=== PATIENT | female | born 1985 | race Caucasian/White ===

== ENCOUNTER → 2019-11-23 15:46 | Outpatient (CLI) | payer BC, SELFPAY ==
--- NOTE | ~2019-11-23 | MR_ITS ---
EXAMINATION: MR cervical spine wo con EXAM DATE: 11/23/2019 16:34 INDICATION: Generalized neck pain. Headaches. TECHNIQUE: Multi-sequential, multiplanar MR images of the cervical spine were obtained without contra st. Axial T2, axial T2 MERGE sequence. Sagittal T1, T2, T2 fat saturation images also obtained. Th ere is no prior study for comparison. FINDINGS: The vertebral bodies are aligned in the AP dimension. Vertebral body and disc heights are well-maintained. There are no suspicious marrow signal abnormalities. The spinal cord signal intensit y and intrinsic morphology is normal. Cervicomedullary junction is normal in appearance. Paraspinal s oft tissue is unremarkable. Level by level evaluation: C2-C3: Disc does not extend beyond the endplate margin. Uncovertebral joint arthropathy: None. Facet joint arthropathy: Mild bilateral. Neural foraminal stenosis: No stenosis. Central canal stenosis: No stenosis. C3-C4: Disc does not extend beyond the endplate margin. Uncovertebral joint arthropathy: None. Facet joint arthropathy: Mild bilateral. Neural foraminal stenosis: No stenosis. Central canal stenosis: No stenosis. C4-C5: Disc does not extend beyond the endplate margin. Uncovertebral joint arthropathy: Mild left. Facet joint arthropathy: Mild bilateral. Neural foraminal stenosis: No stenosis. Central canal stenosis: No stenosis. C5-C6: Disc does not extend beyond the endplate margin. Uncovertebral joint arthropathy: Mild bilateral. Facet joint arthropathy: Mild bilateral. Neural foraminal stenosis: No stenosis. Central canal stenosis: No stenosis. C6-C7: Disc does not extend beyond the endplate margin. Uncovertebral joint arthropathy: Mild bilateral. Facet joint arthropathy: Mild bilateral. Neural foraminal stenosis: No stenosis. Central canal stenosis: No stenosis. C7-T1: Disc does not extend beyond the endplate margin. Uncovertebral joint arthropathy: Mild left. Facet joint arthropathy: Mild bilateral. Neural foraminal stenosis: No stenosis. Central canal stenosis: No stenosis. IMPRESSION: Mild cervical arthropathy. No stenosis. Reviewed, dictated and finalized at location A. CAL COLLECTIONS SPECIALIST
== END ==
PROVIDERS: PCP Internal Medicine; Visit Provider Nurse Practitioner Gerontology
DX: M54.12 Radiculopathy, cervical region (principal)
CPT/HCPCS: 72141

== ENCOUNTER 2021-11-08 18:44 | Emergency (ER) | payer BC, SELFPAY ==
--- NOTE | ~2021-11-08 | XR_ITS ---
EXAMINATION: XR hip RT 2V w AP pelvis EXAM DATE: 11/08/2021 20:21 INDICATION: right hip pain, fall . Initial encounter. TECHNIQUE: Right hip frontal, 'frog leg' projections for interpretation. Frontal projection pelvis. There is no prior study for comparison. FINDINGS: Smooth right hip femoral head contour, no radiographic evidence of avascular necrosis. The re are no acute fractures or dislocations identified. There is no subcutaneous gas. The soft tissue is unremarkable. There are no radiopaque foreign bodies. IMPRESSION: 1. XR hip RT 2V w AP pelvis exam without acute osseous findings. Reviewed, dictated and finalized at location G. ESS COORDINATOR
--- NOTE | ~2021-11-08 | CT_ITS ---
EXAMINATION: CT thoracic lumbar wo con EXAM DATE: 11/08/2021 20:26 INDICATION: back pain, fall . Initial encounter. TECHNIQUE: Spiral CT thoracolumbar spine was performed without contrast. Axial, coronal and sagittal images of the thoracic spine were reviewed. Axial, coronal and sagittal images of the lumbar spine we re reviewed. The dose-length product (DLP) for this examination was 2107.54 mGy-cm. The exposure was tailored according to patient size (auto mA exposure control), and iterative reconstruction (ASIR) w as used as additional dose reduction technique. There is no prior study for comparison. FINDINGS: THORACIC SPINE: Trace bilateral pleural effusions. There are no acute fractures identified. The verte bral bodies are aligned in the AP dimension. No evidence of central canal or neural foraminal stenosi s. LUMBAR SPINE: Sacroiliac joints intact. There is no evidence of acute lumbar fracture. There is no d isc space widening or traumatic vertebral body subluxation suspected. Paraspinal soft tissue is unre markable. Vertebral body and disc heights are well-maintained. IMPRESSION: No acute thoracolumbar findings. Reviewed, dictated and finalized at location . CAL OFFICE CLERK
--- NOTE | ~2021-11-08 | XR_ITS ---
EXAMINATION: XR ribs RT 2V w CXR 2V EXAM DATE: 11/08/2021 20:21 INDICATION: right sided lateral rib pain, fall . TECHNIQUE: Frontal projection of the upper right ribs, frontal projection of the lower right ribs, ob lique projection of the right ribs, frontal and lateral chest x-ray(s) for interpretation. There is no prior study for comparison. FINDINGS: There are no displaced acute right rib fractures identified. There is no soft tissue abno rmality seen. No confluent consolidation, pneumothorax or pleural effusion suspected. Cardiomediastin al silhouette is normal. IMPRESSION: No displaced right rib fractures. Reviewed, dictated and finalized at location G. STERED NURSE RENAL
--- NOTE | ~2021-11-08 | XR_ITS ---
EXAMINATION: XR elbow RT min 3V EXAM DATE: 11/08/2021 20:21 INDICATION: right elbow pain, fall . TECHNIQUE: Right elbow frontal, lateral with flexion, and oblique projections obtained and reviewed. There is no prior study for comparison. FINDINGS: Right elbow anterior humeral line intact. There are no acute fractures or dislocations massimo ntified. There is no subcutaneous gas. The soft tissue is unremarkable. There are no radiopaque f oreign bodies. IMPRESSION: 1. XR elbow RT min 3V exam without acute osseous findings. Reviewed, dictated and finalized at location G. OROLOGY FACULTY MEMBER
--- NOTE | ~2021-11-08 | XR_ITS ---
EXAMINATION: XR shoulder RT min 2V EXAM DATE: 11/08/2021 20:21 INDICATION: right shoulder pain, fall . Initial encounter. TECHNIQUE: The following right shoulder projections obtained: frontal projection with internal rotati on, frontal projection with external rotation, Grashey, and scapular Y view (4+ views). There is no prior study for comparison. FINDINGS: No evidence of right shoulder rotator cuff calcific tendinosis. Unremarkable right glenoh umeral and acromioclavicular joints. There are no acute fractures or dislocations identified. There is no subcutaneous gas. The soft tissue is unremarkable. There are no radiopaque foreign bodies. IMPRESSION: 1. Right shoulder exam without acute osseous findings. Reviewed, dictated and finalized at location G. R TRANSPORTATION WORKER
[2021-11-08 18:51] VITALS: BP 133/85; PULSE 101; RESP 18; TEMP 36.4; O2SAT 99
--- NOTE | 2021-11-08 19:26 | ED.FALL ---
HPI - Fall General Chief Complaint: Fall <Kasia Santiago PA-C - Last Filed: 11/08/21 20:49> Stated Complaint: fall <WANG Jean Baptiste Last Filed: 11/08/21 20:49> Time Seen by Provider: 11/08/21 18:58 <Kasia Santiago PA-C - Last Filed: 11/08/21 20:49> Source: patient <WANG Jean Baptiste Last Filed: 11/08/21 20:49> Mode of arrival: ambulatory <WANG Jean Baptiste Last Filed: 11/08/21 20:49> Limitations: no limitations <WANG Jean Baptiste Last Filed: 11/08/21 20:49> History of Present Illness HPI Narrative: This is a 36-year-old female that presents to the emergency department after a fall today. Reports she was in the shower and slipped and fell onto her right side. Reports since she has had right shoulder, elbow, and hip pain. Also reports right-sided rib pain and mid to low back pain. She did not hit her head or lose consciousness. Denies vision changes, vomiting, numbness, or weakness. <WANG Jean Baptiste Last Filed: 11/08/21 20:49> Related Data Home Medications: Home Medications Medication Instructions Recorded Confirmed dextroamphetamine-amphetamine PO 11/08/21 lorazepam 11/08/21 trazodone 11/08/21 venlafaxine mg PO 11/08/21 <WANG Jean Baptiste Last Filed: 11/08/21 20:49> Allergies/Adverse Reactions: Allergies Allergy/AdvReac Type Severity Reaction Status Date / Time Penicillins Allergy Mild Unknown Verified 11/08/21 18:55 <WANG Jean Baptiste Last Filed: 11/08/21 20:49> Review of Systems Review of Systems: CONSTITUTIONAL: Denies fever EYES: Denies visual changes GASTROINTESTINAL: Denies vomiting MUSCULOSKELETAL: Reports back pain, joint pain, and myalgia. NEUROLOGIC: Denies numbness, or weakness. <WANG Jean Baptiste Last Filed: 11/08/21 20:49> All systems reviewed & are unremarkable except as noted in HPI and below <Kasia Santiago PA-C - Last Filed: 11/08/21 20:49> [facility] Past Medical History Medical History: Medical History (Updated 11/08/21 @ 20:48 by Kasia Santiago PA-C) History of ADHD <Kasia Santiago PA-C - Last Filed: 11/08/21 20:49> Social History Social History: Social History (Updated 11/08/21 @ 19:27 by Kasia Santiago PA-C) Substance use: never <Kasia Santiago PA-C - Last Filed: 11/08/21 20:49> Exam Narrative: GENERAL: Well-appearing, well-nourished, and in no acute distress. HEAD: Normocephalic, atraumatic. EYES: PERRLA and EOMI. ENT: Nares clear, no rhinorrhea or epistaxis. Mucous membranes moist. Oropharynx without tonsillar hypertrophy exudate or other lesions. Bilateral TMs pearly patel non-bulging NECK: Supple. No adenopathy or masses. No midline cervical spine tenderness CHEST: Clear to auscultation. No respiratory distress. No wheezes rales or rhonchi HEART: Regular rate and rhythm. No murmur heard. Normal peripheral pulses. ABDOMEN: Soft, nontender, nondistended, normal active bowel sounds. BACK: Tender to palpation of midline thoracic and lumbar spine EXTREMITIES: Normal range of motion, except decreased active ROM in the right shoulder due to pain. No edema or obvious deformity. Strength equal in bilateral upper and lower extremities (5/5) SKIN: Warm, dry, no rash. NEURO: No focal deficits. Alert and oriented x3. Cranial nerves II through XII grossly intact PSYCH: Normal mood and affect <Kasia Santiago PA-C - Last Filed: 11/08/21 20:49> Course VEHICLE AND EQUIPMENT CLEANER/PA Physician Supervision For this patient encounter, I reviewed the VEHICLE AND EQUIPMENT CLEANER or PA documentation, treatment plan, and medical decision making <Esteban Jimenez MD - Last Filed: 11/08/21 21:01> Vital Signs Vital signs: Vital Signs Temperature 97.5 F L 11/08/21 18:51 Pulse Rate 101 H 11/08/21 18:51 Respiratory Rate 18 11/08/21 18:51 Blood Pressure 133/85 11/08/21 18:51 Pulse Oximetry 99 11/08/21 18:51 Temperature 97.5 F L 11/08/21 18:51 Pulse Rate 101 H
[2021-11-08] MEDS: HYDROcodone/acetaminophen (*CRX) 5-325 MG TABLET 1 TAB PO (19:30)
[2021-11-08 21:04] VITALS: BP 113/64; PULSE 61; RESP 14; O2SAT 99
== END 2021-11-08 21:05 | disposition home or self-care (01) ==
PROVIDERS: Emergency Provider Emergency Medicine; PCP Internal Medicine
DX: S20.211A Contusion of right front wall of thorax, initial encounter (principal); W18.2XXA Fall in (into) shower or empty bathtub, initial encounter
CPT/HCPCS: 71046; 71100; 72128; 72131; 73030; 73080; 73502; 81025; 99284; A9270